=== PATIENT | male | born 1995 | race Caucasian/White ===

== ENCOUNTER 2019-11-11 13:18 | Emergency (ER) | payer OTHER ==
[~2019-11-11] VITALS: Ht 175.3 cm; Wt 59.0 kg
[2019-11-11 13:24] VITALS: BP 154/99
== END 2019-11-11 14:03 | disposition home or self-care (01) ==
LOC: ER 13:18
DX: S61.212A Laceration without foreign body of right middle finger without damage to nail, initial encounter (principal); W22.8XXA Striking against or struck by other objects, initial encounter; Y93.89 Activity, other specified; Y92.89 Other specified places as the place of occurrence of the external cause; Y99.8 Other external cause status